=== PATIENT | male | born 2000 | race African-American/Black ===

== ENCOUNTER 2025-05-17 19:29 | Emergency (ER) | payer SELFPAY ==
[2025-05-17 19:34] VITALS: BP 129/81; PULSE 84; RESP 18; TEMP 36.8; O2SAT 97
[2025-05-17 19:41] VITALS: PULSE 81; RESP 20; O2SAT 98
[2025-05-17 19:48] VITALS: BMI 24.3
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
--- NOTE | 2025-05-17 20:05 | XR_ITS ---
Examination: CT brain head without contrast. 2-D sagittal coronal reconstructions Date and time of exam:May 17, 2025 2140 hours INDICATIONS: Altered mental status today CTDI: vol (mGy):50 DLP: (mGycm):1057 Technique: Multiple CT axial sections of the brain have been obtained, 5 mm slice thickness. Contrast has not been administered. 2-D sagittal, coronal reconstructions have been obtained Low dose protocols were performed. One or more of the following dose reduction techniques were used; automated exposure control, adjustment of the mA and/or KV according to patient size, use of iterative reconstruction technique. Findings: No significant ventricular enlargement. Intra-axial or extra-axial hemorrhage density is not seen. No mass effect or midline shift Basal cisterns are not remarkable. Fourth ventricle is midline. Cranial vault intact. Significant right ethmoid maxillary antral sinusitis Impression: Negative for acute hemorrhage, mass effect or midline shift
[2025-05-17 20:38] LABS: Basophils % (Auto) 0 % (0-2.5); Eosinophils # (Auto) 0.6 Thou/mm3 (0.0-0.5); Eosinophils % (Auto) 6 % (0-10); Hemoglobin 13.8 g/dL (13.5-16.0); Immature Granulocytes % (Auto) 0 % (0-0); Immature Granulocytes Auto 0.02 Thou/mm3 (0.00-0.00); Lymphocytes # (Auto) 1.4 Thou/mm3 (1.0-4.8); Lymphocytes % (Auto) 15 % (10-50); Mean Corpuscular HGB Conc 33.7 g/dl (31.0-37.0); Mean Corpuscular Hemoglobin 29.6 pg (25.0-35.0); Mean Corpuscular Volume 88 fL (80-100); Monocytes # (Auto) 0.7 Thou/mm3 (0.0-0.8); Monocytes % (Auto) 7 % (0-12); Neutrophils # (Auto) 6.7 Thou/mm3 (1.8-7.7); Neutrophils % (Auto) 71 % (37-80); Nucleated Red Blood Cell % 0 /100 WBC (0); Platelet Count 190 Thou/mm3 (140-440); RDW Standard Deviation 40.3 fL (35.1-43.9); Red Blood Count 4.67 Miln/mm3 (4.50-5.90); White Blood Count 9.4 Thou/mm3 (3.8-10.6)
[2025-05-17] MEDS: DIPHTH,PERTUSS(ACELL),TET VAC 0.5 ML SYR- ADULT IMi (20:38)
[2025-05-17 20:59] LABS: Alanine Aminotransferase 15 U/L (10-49); Albumin, Serum 5.1 gm/dL (3.5-5.0); Albumin/Globulin Ratio 2.1 (1.2-2.2); Alcohol, Blood Medical < 3.0 mg/dL (0-10.0); Alkaline Phosphatase 69 U/L (46-116); Anion Gap 10 (7-16); Aspartate Amino Transferase 22 U/L (0-34); BUN/Creatinine Ratio 8 Ratio (12-20); Bilirubin,Total 0.5 mg/dL (0.3-1.2); Blood Urea Nitrogen 10 mg/dL (9-23); Calcium 10.2 mg/dL (8.3-10.6); Calcium (Corrected) 10.2 mg/dL (8.5-10.1); Carbon Dioxide 25.6 mMol/L (20.0-31.0); Chloride 105 mMol/L (98-107); Creatinine (Component) 1.2 mg/dL (0.6-1.3); Globulin 2.4 gm/dL (2.3-3.5); Glucose 95 mg/dL (74-106); Osmolality,Calculated 280 (275-295); Potassium 3.8 mMol/L (3.4-5.1); Sodium 141 mMol/L (136-145); Total Protein 7.5 gm/dL (5.7-8.2); eGFR > 60 See Note
[2025-05-17 23:32] VITALS: BP 114/72; PULSE 82; RESP 18; TEMP 36.8; O2SAT 97
[2025-05-18 01:37] LABS: Collection Type, Urine Clean Catch
[2025-05-18 01:49] LABS: Amorphous Crystals,Urine Present (Absent); Bilirubin,Urine Negative (Negative); Blood,Urine Negative (Negative); Clarity,Urine Turbid (Clear/Hazy); Color,Urine Yellow (Lt Yel-Yel); Culture Indicated,Urine Not Indicated; Glucose, Urine Negative (Negative); Ketones,Urine Negative (Negative); Leukocyte Esterase,Urine Negative (Negative); Nitrite,Urine Negative (Negative); Protein,Urine Trace (Neg - Trace); RBC,Urine 6 /hpf (0-3); Specific Gravity,Urine 1.026 (1.001-1.035); Squamous Epithelial Cell,Urine 1 /hpf (0-5); WBC,Urine < 1 /hpf (0-5)
[2025-05-18 01:51] LABS: Amphetamine/Methamp Scrn,U Negative (Negative); Barbiturate Screen,Urine Negative (Negative); Benzodiazepines Screen,Urine Negative (Negative); Benzoylecgonine Screen, Ur Negative (Negative); Fentanyl Screen,Urine Negative (Negative); Opiate Screen,Urine Negative (Negative); THC Screen,Urine Negative (Negative)
[2025-05-18 03:47] VITALS: BP 124/78; PULSE 78; RESP 19; TEMP 36.6; O2SAT 97
[2025-05-18 04:39] VITALS: BP 112/73; PULSE 75; RESP 19; TEMP 36.6; O2SAT 98
[2025-05-18 05:42] VITALS: BP 116/78; PULSE 80; RESP 18; TEMP 36.6; O2SAT 98
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
[2025-05-18 07:13] VITALS: BP 166/77; PULSE 80; RESP 16; TEMP 36.7; O2SAT 97
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
--- NOTE | 2025-05-18 09:21 | PD.EDADDENDU ---
Emergency Room Addendum <Annmarie Lorenzana - Last Filed: 05/18/25 09:47> Addendum Narrative: At 6 AM on 05/18/2025, the care of the patient was transferred from Dr. Nunn), see his notes for complete H&P and ED course. I reviewed all diagnostic test results. The ED rn transitional care evaluated the patient and rescinded the 5150 hold. States patient has an appointment scheduled today 05/18/2025 @ 1:00 PM at [facility]. At this point, diagnoses include Suicidal ideation, forehead contusion, abrasion of left arm. Based on my best medical judgment, made decision no further evaluation or treatment indicated at this time.? Patient understands and agrees to the discharge instructions customized and printed, see below. Discharge Instructions from Dr. Kraus: 1. Our ED rn transitional care evaluated you and recommended discharge. With 1 PM appointment today at: [facility] [address], [place] [address] 2. You don't meet the criteria for emergency custodial in psychiatric unit against your will.? Because you currently have no thoughts of hurting yourself or others.? And there are no signs of psychosis (loss of touch with reality) which can potentially be harmful to you and others. 3. Wound care of your skin abrasions as instructed in the attached handout. 4. Apply ice to your forehead contusion for 20 minutes every 2-3 hours today and tomorrow. Ibuprofen 800 mg every 6-8 hours today and tomorrow to decrease inflammation then as needed. 5. See a private doctor on 05/19/2025 for recheck and further care. Ask to help you stay healthy both physically and mentally.? And help to receive all services available to you, including referral to see mental health specialists. Ask for help until you are completely better. 6. Seek immediate medical care (you can call 911 any time) with thoughts of hurting yourself or with any concerns. Asif Kraus MD <Asif Kraus MD - Last Filed: 05/18/25 10:58> Addendum Narrative: At 6 AM on 05/18/2025, the care of the patient was transferred from Dr. Taylor, see her notes for complete H&P and ED course. I reviewed all diagnostic test results. The ED rn transitional care evaluated the patient and rescinded the 5150 hold. Made appointment scheduled today 05/18/2025 @ 1:00 PM at [facility]. At this point, diagnoses include Suicidal ideation, forehead contusion, abrasion of left arm. Currently, patient reports no thoughts of hurting himself or others to me. No hallucinations. Based on my best medical judgment, made decision no further evaluation or treatment indicated at this time.? Patient understands and agrees to the discharge instructions customized and printed, see below. Discharge Instructions from Dr. Kraus: 1. Our ED rn transitional care evaluated you and recommended discharge. With 1 PM appointment today at: [facility] [address], [place] [address] 2. You don't meet the criteria for emergency custodial in psychiatric unit against your will.? Because you currently have no thoughts of hurting yourself or others.? And there are no signs of psychosis (loss of touch with reality) which can potentially be harmful to you and others. 3. Wound care of your skin abrasions as instructed in the attached handout. 4. Apply ice to your forehead contusion for 20 minutes every 2-3 hours today and tomorrow. Ibuprofen 800 mg every 6-8 hours today and tomorrow to decrease inflammation then as needed. 5. See a private doctor on 05/19/2025 for recheck and further care. Ask to help you stay healthy both physically and mentally.? And help to receive all services available to you, including referral to see mental health specialists. Ask for help until you are completely better. 6. Seek immediate medical care (you can call 911 any time) with thoughts of hurting yourself or with any concerns. Asif Kraus MD
[2025-05-18 09:33] VITALS: BP 128/66; PULSE 89; RESP 18; TEMP 36.6; O2SAT 99
== END 2025-05-18 10:02 | disposition home or self-care (01) ==
PROVIDERS: Emergency Medicine; Emergency Provider Emergency Medicine
DX: R45.851 Suicidal ideations (principal); S00.83XA Contusion of other part of head, initial encounter; S00.81XA Abrasion of other part of head, initial encounter; S50.812A Abrasion of left forearm, initial encounter; X78.1XXA Intentional self-harm by knife, initial encounter; J32.0 Chronic maxillary sinusitis; Z23 Encounter for immunization
CPT/HCPCS: 36415; 70450; 80053; 80307; 80320; 81001; 85025; 87811; 90471; 90715; 96127; 99284; G0480